=== PATIENT | female | born 2000 | race Caucasian/White ===

== ENCOUNTER 2020-03-07 13:30 | Observation (INO) ==
[2020-03-07] MEDS ORDERED: PANTOPRAZOLE BOLUS/DRIP 1 EA IV STA (14:17)
[2020-03-07] MEDS ORDERED: ONDANSETRON INJ 2 MG/ML 2 ML VIAL IV STA (14:17)
[2020-03-07] MEDS ORDERED: ACETAMINOPHEN 1000 MG/100 ML IV IV STA (14:17)
[2020-03-07] MEDS ORDERED: PANTOprazole 80 MG in DEXTROSE 5% 100 ML IV ONE (14:17)
[2020-03-07] MEDS ORDERED: MoRPHine SULFATE 4 MG/ML 1 ML CARP\\VIAL IV PRN (14:17)
[2020-03-07] MEDS ORDERED: DiphenhydrAMINE HCL 50 MG/ML VIAL IV STA (14:17)
--- NOTE | 2020-03-07 14:26 | Emergency Department Note ---
Impression & Plan LUQ abdominal pain, Acute dehydration, Vomiting and diarrhea, Melena ED Provider Note NAME: ILDEFONSO MULLIGAN AGE: 19 SEX: F : 2000 ARRIVES VIA: Walk-In INFORMANT: [Patient] ED PROVIDER(S): [Charles Boswell MD] CHIEF COMPLAINT: Abdominal pain HISTORY OF PRESENT ILLNESS: The patient is a 19-year-old female who presents to the ED with about 4 days of abdominal pain. The patient states that in addition, she has had nausea, vomiting and diarrhea. The patient was seen in this ED 3 days ago, lab work was unremarkable. Abdominal and pelvis CT showed a normal appendix however, there was some slight thickening of the stomach of unknown etiology. The patient states that since being discharged, she has continued to have crampy abdominal pain in particular, in the right lower quadrant. The pain comes and goes and when present, is an 8 on a scale of 1-10. She has had some vomiting. She has no appetite. She is weak and exhausted. The patient states that her urine output has decreased although there has been no urinary burning. She had 1 bout of dark, black stool. The color of her stool concerned her and she presents to the ED. The patient states that she has in the past use omeprazole, she has not use this though lately. She does occasionally have reflux. Motrin, when she uses it, does cause her stomach cramping. REVIEW OF SYSTEMS: See HPI for pertinent positives and negatives. A total of ten systems were re viewed and were otherwise negative. PMHx/PSHx: See Below SOCIAL HISTORY: See Below. PHYSICAL EXAM: GENERAL: Patient is in no acute distress. HEENT: No acute trauma, normocephalic atraumatic, mucous membranes moist, no nasal congestion, no scleral icterus. NECK: No stridor, no adenopathy, no meningismus, trachea is midline. LUNGS: Clear to auscultation bilaterally, no wheeze, no rhonchi, breath sounds equal. HEART: Without murmurs gallops or rubs, regular rate and rhythm. ABDOMEN: Soft, mildly diffusely tender but fairly significant tender in the left upper quadrant, bowel sounds were not heard, no hernias, no peritonitis. EXTREMITIES: No cyanosis or edema, full range of motion of all the joints without pain or difficulty, no signs for acute trauma. NEUROLOGIC: Oriented x 3, no acute motor or sensory deficits, no focal weakness. SKIN: No rash, no jaundice, no diaphoresis. Rectal: Dark stool, heme positive. DIFFERENTIAL DIAGNOSIS: Appendicitis, ovarian cyst, ovarian torsion, ectopic , TOA, PID, infections, ulcers, gastritis, GI bleeding, diverticulitis, UTI, obstruction, mesenteric ischemia, aortic pathology, inflammatory bowel disease, renal colic, PUD, pancreatitis, biliary pathology, hernia, volvulus, constipation, as well as other pathologies. EMERGENCY DEPARTMENT COURSE/PROCEDURES: Continuous Cardiac Monitoring: An order was placed for continuous cardiac monitoring. The monitor shows a rate of 60 with normal sinus rhythm. MEDICAL DECISION MAKING: There is a moderate leukocytosis, this could be consistent with her pain and vomiting or possibly infection. She has a normal hemoglobin. There is a normal platelet count. No significant electrolyte abnormality or kidney failure. No concerning liver enzyme elevation. testing was negative. No evidence for pancreatitis by her testing. Urinalysis showed some contamination, no infection. Abdominal series does not show free air, pneumonia or bowel obstruction. On exam, the patient was tender in the left upper quadrant. Rectal exam revealed dark stool which was heme positive. Patient received IV saline for hydration. She was given a bolus of Protonix and placed on a Protonix drip. She received IV Zofran for nausea, IV morphine for pain, IV Benadryl for nausea. She received IV Tylenol for pain. The patient does seem more comfortable. She has findings consistent with GI bleeding and melena. I am concerned about ulcer and/or gastritis. She is not doing well at home. She is quite dehydrated and I do think requires a hospital stay. I did speak to the patient and to the pillowcase folder. I consulted GI, they felt a hospital stay was appropriate. The on-call hospitalist was consulted. Past Med/Surg History Medical History Anxiety Asthma IUD (intrauterine device) in place No pertinent past medical history Surgical History No pertinent past surgical history Social History Smoking Status: Never smoker Hx Alcohol Use: Yes Alcohol type: beer, wine and hard liquor Hx Substance Use: No Preferred Language: Wolof Communication Ability: Effective Donor Support Technician Required: No Beliefs That Will Affect Care: None Current Living Situation: Other Current Living Situation Comment: [employer] off campus housing with roommates Other Information That Helps Us Care for You: No Feels Safe at Home: Yes Safety Concerns: Feels Safe At This Time Allergies Allergies Allergy/AdvReac Type Severity Reaction Status Date / Time nut - unspecified Allergy Severe Anaphylaxis Verified 03/07/20 15:22 Home Meds Home Medications Medication Instructions Recorded Confirmed levonorgestrel [Mirena] 20 mcg INTRAUTERINE CONTINOUS 06/15/19 03/07/20 Claritin-D 24 Hour 1 tab PO DAILY 03/07/20 03/07/20 albuterol sulfate 2 inh INHALATION QID PRN 03/07/20 03/07/20 sertraline [Zoloft] 100 mg PO DAILY 03/07/20 03/07/20 Results & Data (ED) Vital Signs Vital Signs - 24 hr 03/07/20 13:39 03/07/20 14:00 03/07/20 14:03 Temperature 36.7 C Temperature Source Oral Pulse Rate 102 H 61 61 Pulse Rate from SpO2 Sensor 62 62 Pulse Rhythm Respiratory Rate 20 13 14 Blood Pressure 116/72 106/74 Blood Pressure Mean 86 82 Pulse Oximetry 98 96 96 Oxygen Delivery Method Room Air Sepsis Recent Fever Within 48 Hours No Sepsis New/Unexplained Change in Mental Status No Sepsis Action Taken by Nursing No Action Required 03/07/20 14:17 03/07/20 14:30 03/07/20 14:31 Temperature Temperature Source Pulse Rate 66 78 Pulse Rate from SpO2 Sensor 67 76 Pulse Rhythm Regular Respiratory Rate 15 19 Blood Pressure 108/70 Blood Pressure Mean 81 Pulse Oximetry 98 97 Oxygen Delivery Method Room Air Sepsis Recent Fever Within 48 Hours Sepsis New/Unexplained Change in Mental Status Sepsis Action Taken by Nursing 03/07/20 15:00 03/07/20 15:30 03/07/20 15:31 Temperature Temperature Source Pulse Rate 63 60 60 Pulse Rate from SpO2 Sensor 63 60 57 L Pulse Rhythm Respiratory Rate 14 15 14 Blood Pressure 102/70 Blood Pressure Mean 74 Pulse Oximetry 100 99 100 Oxygen Delivery Method Sepsis Recent Fever Within 48 Hours Sepsis New/Unexplained Change in Mental Status Sepsis Action Taken by Nursing 03/07/20 16:00 03/07/20 16:01 Temperature Temperature Source Pulse Rate 61 62 Pulse Rate from SpO2 Sensor 61 63 Pulse Rhythm Respiratory Rate 18 13 Blood Pressure 111/75 Blood Pressure Mean 81 Pulse Oximetry 100 99 Oxygen Delivery Method Sepsis Recent Fever Within 48 Hours Sepsis New/Unexplained Change in Mental Status Sepsis Action Taken by [facility] Medications Current Medication List: was personally reviewed by me Laboratory Data Attestation: I reviewed the patient's lab results. Result diagrams: 03/07/20 13:55 03/07/20 13:55 Lab Results 03/07/20 03/07/20 03/07/20 Range/Units 13:55 13:55 13:55 WBC 15.26 H (4.8-10.8) K/uL RBC 4.81 (4.2-5.4) M/uL Hgb 15.7 (12.0-16.0) g/dL Hct 44.9 (37-47) % MCV 93.3 (80-100) fL MCH 32.6 (25-34) pg MCHC 35.0 (32-36) g/dL RDW Std Deviation 41.6 (36.4-46.3) fL RDW Coeff of Olivier 12.5 (11.5-14.5) % Plt Count 326 (130-400) K/uL MPV 9.6 (7.4-10.4) fL Immature Gran % (Auto) 0.2 % Neut % (Auto) 82.2 % Lymph % (Auto) 10.9 % Falls % (Auto) 6.0 % Eos % (Auto) 0.6 % Baso % (Auto) 0.1 % Neut # (Auto) 12.55 H (1.4-6.5) K/uL Lymph # (Auto) 1.66 (1.2-3.4) K/uL Falls # (Auto) 0.92 H (0.11-0.59) K/uL Eos # (Auto) 0.09 (0-0.5) K/uL Baso # (Auto) 0.01 (0-0.2) K/uL Immature Gran # (Auto) 0.03 H (0.00-0.02) K/uL ESR (0-21) mm/hr Sodium 137 (136-145) mmol/L Potassium 3.5 (3.5-5.1) mmol/L Chloride 100 (98-107) mmol/L Carbon Dioxide 29 (21-32) mmol/L Anion Gap 8.0 (3-11) BUN 10 (7-18) mg/dl Creatinine 0.89 (0.6-1.2) mg/dl Est Cr Clr Drug Dosing 96.5 ml/min Est GFR ( Amer) 108.9 Est GFR (Non-Af Amer) 94.0 BUN/Creatinine Ratio 10.9 (10-20) Glucose 90 (70-99) mg/dl Calcium 9.7 (8.5-10.1) mg/dl Magnesium 2.2 (1.8-2.4) mg/dl Total Bilirubin 0.7 (0.2-1) mg/dl AST 20 (15-37) U/L ALT 17 (12-78) U/L Alkaline Phosphatase 84 (45-117) U/L C-Reactive Protein (0-0.29) mg/dl Total Protein 8.8 H (6.4-8.2) gm/dl Albumin 4.6 (3.4-5.0) gm/dl Globulin 4.2 H (2.5-4.0) gm/dl Albumin/Globulin Ratio 1.1 (0.9-2) Lipase 76 (73-393) U/L HCG, Qual Negative (Negative) Urine Color Urine Appearance (Clear) Urine pH (4.5-7.5) Ur Specific [place] (1.000-1.030) Urine Protein (Negative) Urine Glucose (UA) (Negative) Urine Ketones (Negative) Urine Blood (Negative) Urine Nitrite (Negative) Urine Bilirubin (Negative) Urine Urobilinogen (Negative) Ur Leukocyte Esterase (Negative) Urine WBC (Auto) (0-5) /hpf Urine RBC (Auto) (0-4) /hpf U Hyaline Cast (Auto) (0-5) /lpf U Epithel Cells (Auto) (0-5) /lpf Urine Bacteria (Auto) (Negative) Blood Type Antibody Screen 03/07/20 03/07/20 03/07/20 Range/Units 13:55 13:55 13:55 WBC (4.8-10.8) K/uL RBC (4.2-5.4) M/uL Hgb (12.0-16.0) g/dL Hct (37-47) % MCV (80-100) fL MCH (25-34) pg MCHC (32-36) g/dL RDW Std Deviation (36.4-46.3) fL RDW Coeff of Olivier (11.5-14.5) % Plt Count (130-400) K/uL MPV (7.4-10.4) fL Immature Gran % (Auto) % Neut % (Auto) % Lymph % (Auto) % Falls % (Auto) % Eos % (Auto) % Baso % (Auto) % Neut # (Auto) (1.4-6.5) K/uL Lymph # (Auto) (1.2-3.4) K/uL Falls # (Auto) (0.11-0.59) K/uL Eos # (Auto) (0-0.5) K/uL Baso # (Auto) (0-0.2) K/uL Immature Gran # (Auto) (0.00-0.02) K/uL ESR 6 (0-21) mm/hr Sodium (136-145) mmol/L Potassium (3.5-5.1) mmol/L Chloride (98-107) mmol/L Carbon Dioxide (21-32) mmol/L Anion Gap (3-11) BUN (7-18) mg/dl Creatinine (0.6-1.2) mg/dl Est Cr Clr Drug Dosing ml/min Est GFR ( Amer) Est GFR (Non-Af Amer) BUN/Creatinine Ratio (10-20) Glucose (70-99) mg/dl Calcium (8.5-10.1) mg/dl Magnesium (1.8-2.4) mg/dl Total Bilirubin (0.2-1) mg/dl AST (15-37) U/L ALT (12-78) U/L Alkaline Phosphatase (45-117) U/L C-Reactive Protein < 0.29 (0-0.29) mg/dl Total Protein (6.4-8.2) gm/dl Albumin (3.4-5.0) gm/dl Globulin (2.5-4.0) gm/dl Albumin/Globulin Ratio (0.9-2) Lipase (73-393) U/L HCG, Qual (Negative) Urine Color Yellow Urine Appearance Turbid A (Clear) Urine pH 7.0 (4.5-7.5) Ur Specific [place] 1.021 (1.000-1.030) Urine Protein Negative (Negative) Urine Glucose (UA) Negative (Negative) Urine Ketones 1+ H (Negative) Urine Blood Trace H (Negative) Urine Nitrite Negative (Negative) Urine Bilirubin Negative (Negative) Urine Urobilinogen Negative (Negative) Ur Leukocyte Esterase Negative (Negative) Urine WBC (Auto) 1-5 (0-5) /hpf Urine RBC (Auto) 0-4 (0-4) /hpf U Hyaline Cast (Auto) 1-5 (0-5) /lpf U Epithel Cells (Auto) >30 H (0-5) /lpf Urine Bacteria (Auto) Negative (Negative) Blood Type Antibody Screen 03/07/20 Range/Units 14:53 WBC (4.8-10.8) K/uL RBC (4.2-5.4) M/uL Hgb (12.0-16.0) g/dL Hct (37-47) % MCV (80-100) fL MCH (25-34) pg MCHC (32-36) g/dL RDW Std Deviation (36.4-46.3) fL RDW Coeff of Olivier (11.5-14.5) % Plt Count (130-400) K/uL MPV (7.4-10.4) fL Immature Gran % (Auto) % Neut % (Auto) % Lymph % (Auto) % Falls % (Auto) % Eos % (Auto) % Baso % (Auto) % Neut # (Auto) (1.4-6.5) K/uL Lymph # (Auto) (1.2-3.4) K/uL Falls # (Auto) (0.11-0.59) K/uL Eos # (Auto) (0-0.5) K/uL Baso # (Auto) (0-0.2) K/uL Immature Gran # (Auto) (0.00-0.02) K/uL ESR (0-21) mm/hr Sodium (136-145) mmol/L Potassium (3.5-5.1) mmol/L Chloride (98-107) mmol/L Carbon Dioxide (21-32) mmol/L Anion Gap (3-11) BUN (7-18) mg/dl Creatinine (0.6-1.2) mg/dl Est Cr Clr Drug Dosing ml/min Est GFR ( Amer) Est GFR (Non-Af Amer) BUN/Creatinine Ratio (10-20) Glucose (70-99) mg/dl Calcium (8.5-10.1) mg/dl Magnesium (1.8-2.4) mg/dl Total Bilirubin (0.2-1) mg/dl AST (15-37) U/L ALT (12-78) U/L Alkaline Phosphatase (45-117) U/L C-Reactive Protein (0-0.29) mg/dl Total Protein (6.4-8.2) gm/dl Albumin (3.4-5.0) gm/dl Globulin (2.5-4.0) gm/dl Albumin/Globulin Ratio (0.9-2) Lipase (73-393) U/L HCG, Qual (Negative) Urine Color Urine Appearance (Clear) Urine pH (4.5-7.5) Ur Specific [place] (1.000-1.030) Urine Protein (Negative) Urine Glucose (UA) (Negative) Urine Ketones (Negative) Urine Blood (Negative) Urine Nitrite (Negative) Urine Bilirubin (Negative) Urine Urobilinogen (Negative) Ur Leukocyte Esterase (Negative) Urine WBC (Auto) (0-5) /hpf Urine RBC (Auto) (0-4) /hpf U Hyaline Cast (Auto) (0-5) /lpf U Epithel Cells (Auto) (0-5) /lpf Urine Bacteria (Auto) (Negative) Blood Type O Positive Antibody Screen NEGATIVE Administered Medications Pantoprazole Sodium 40 mg/ (Syringe) 10 mls @ 5 mls/min IV BID BRITANY Stop: 04/06/20 20:59 Last Admin: 03/07/20 20:59 Dose: 5 mls/min Documented by: [id number] Sodium Chloride (Nss 1000ml) 1,000 mls @ 80 mls[facility]hr [id number] Stop: 04/06/20 19:44 Last Admin: 03/07/20 20:59 Dose: 80 mls/hr Documented by: [id number] Sucralfate (Sucralfate 1 Gm/10 Ml Udc) 1 gm PO QID BRITANY Stop: 04/06/20 20:59 Last Admin: 03/07/20 21:02 Dose: 1 gm Documented by: [id number] Discontinued Medications Acetaminophen (Acetaminophen 1000 Mg/100 Ml Iv) 1,000 mg IV NOW STA Stop: 03/07/20 14:18 Last Admin: 03/07/20 14:52 Dose: 1,000 mg Documented by: [id number] Diphenhydramine HCl (Diphenhydramine Hcl 50 Mg/Ml Vial) 12.5 mg IV NOW STA Stop: 03/07/20 14:18 Last Admin: 03/07/20 14:52 Dose: 12.5 mg Documented by: [id number] Sodium Chloride (Nss 1000ml) 1,000 mls @ 999 mls/hr IV .[id number] BRITANY Stop: 03/07/20 15:30 Last Infusion: 03/07/20 19:40 Dose: 0 mls/hr Documented by: [id number] Admin: 03/07/20 14:55 Dose: 999 mls/hr Documented by: [id number] Pantoprazole Sodium (Protonix Bolus/Drip) 0 mls @ 1 mls/hr IV ONE STA Stop: 03/07/20 14:18 Last Admin: 03/07/20 14:40 Dose: 1 mls/hr Documented by: [id number] Pantoprazole Sodium 40 mg/ (Dextrose) 100 mls @ 20 mls/hr IV Q5H BRITANY Stop: 04/06/20 14:33 Last Admin: 03/07/20 21:20 Dose: Not Given Documented by: [id number] Infusion: 03/07/20 20:00 Dose: 0 mg/hr, 0 mls/hr Documented by: [id number] Admin: 03/07/20 14:54 Dose: 8 mg/hr, 20 mls/hr Documented by: [id number] Pantoprazole Sodium 80 mg/ (Dextrose) 120 mls @ 400 mls/hr IV NOW ONE Stop: 03/07/20 14:34 Last Infusion: 03/07/20 19:40 Dose: 0 mls/hr Documented by: [id number] Admin: 03/07/20 14:53 Dose: 400 mls/hr Documented by: [id number] Morphine Sulfate (Morphine Sulfate 4 Mg/Ml 1 Ml Carp\Vial) 2 mg IV Q15M PRN PRN Reason: Pain Stop: 03/21/20 14:16 Last Admin: 03/07/20 14:55 Dose: 2 mg Documented by: [id number] Ondansetron HCl (Ondansetron Inj 2 Mg/Ml 2 Ml Vial) 4 mg IV NOW STA Stop: 03/07/20 14:18 Last Admin: 03/07/20 14:55 Dose: 4 mg Documented by: [id number] Imaging Data Radiologist's Impression: XR abdomen 2V w PA chest CLINICAL HISTORY: Nausea, vomiting, diarrhea COMPARISON STUDY: CT scan dated 03/05/2020 FINDINGS: The erect chest reveals no evidence of free air. There is no evidence of focal pulmonary consolidation.] Erect and supine views of the abdomen reveal no abnormally dilated loops of large or small bowel. There are no transition zone to indicate bowel obstruction. An IUD is visualized. IMPRESSION: No evidence of bowel obstruction. No evidence of free air. Blood Pressure Blood Pressure Findings: Normal blood pressure Discharge Plan Visit Data Chief Complaint: Abdominal Pain Stated Complaint: ABDOMINAL PAIN ED Provider: Charles Boswell Discharge Problem: LUQ abdominal pain, Acute dehydration, Vomiting and diarrhea, Melena Patient Disposition: Admitted As Inpatient Condition: Good Discharge Instructions Interventions: ED Discharge Assessment Last Done: 03/07/20 17:49
[2020-03-07] MEDS ORDERED: SODIUM CHLORIDE 0.9% 1000ML 1,000 ML IV SCH (14:30)
[2020-03-07 14:31] LABS: Basophils # (auto) 0.01 K/uL (0-0.2); Basophils % (auto) 0.1 %; Eosinophils # (auto) 0.09 K/uL (0-0.5); Eosinophils % (auto) 0.6 %; Hematocrit (blood only) 44.9 % (37-47); Hemoglobin 15.7 g/dL (12.0-16.0); Immature Granulocytes # (auto) 0.03 K/uL (0.00-0.02); Immature Granulocytes % (auto) 0.2 %; Lymphocytes # (auto) 1.66 K/uL (1.2-3.4); Lymphocytes % (auto) 10.9 %; Mean Corpuscular Hemoglobin 32.6 pg (25-34); Mean Corpuscular Volume 93.3 fL (80-100); Mean Platelet Volume 9.6 fL (7.4-10.4); Monocytes # (auto) 0.92 K/uL (0.11-0.59); Neutrophils # (auto) 12.55 K/uL (1.4-6.5); Neutrophils % (auto) 82.2 %; Platelet Count 326 K/uL (130-400); RDW Coefficient of Variation 12.5 % (11.5-14.5); RDW Standard Deviation 41.6 fL (36.4-46.3); Red Blood Count 4.81 M/uL (4.2-5.4); White Blood Count 15.26 K/uL (4.8-10.8)
[2020-03-07 14:35] LABS: Appearance Urine Turbid (Clear); Bacteria Urine Automated Negative (Negative); Bilirubin Urine Negative (Negative); Blood Urine Trace (Negative); Color Urine Yellow; Epithelial Cell Urine Auto >30 /lpf (0-5); Glucose Urine UA Negative (Negative); Ketones Urine 1+ (Negative); Leukocyte Esterase Urine Negative (Negative); Nitrite Urine Negative (Negative); Protein Urine Negative (Negative); Specific Gravity Urine 1.021 (1.000-1.030); Urobilinogen Urine Negative (Negative)
[2020-03-07 14:37] LABS: Pregnancy Test, Serum Negative (Negative)
[2020-03-07 14:39] LABS: Albumin Level 4.6 gm/dl (3.4-5.0); BUN Creatinine Ratio 10.9 (10-20); Calcium 9.7 mg/dl (8.5-10.1); Creatinine Clr Calc Pharmacy 96.5 ml/min; Est GFR (African American) 108.9; Magnesium 2.2 mg/dl (1.8-2.4); Potassium 3.5 mmol/L (3.5-5.1)
[2020-03-07 14:42] LABS: Albumin Globulin Ratio 1.1 (0.9-2); Bilirubin,Total 0.7 mg/dl (0.2-1); Globulin 4.2 gm/dl (2.5-4.0); Total Protein 8.8 gm/dl (6.4-8.2)
[2020-03-07 14:44] LABS: RBC Urine Automated 0-4 /hpf (0-4)
[2020-03-07] MEDS: PANTOprazole 40 MG in DEXTROSE 5% 100 ML IV SCH ×2 (14:54→21:20)
--- NOTE | 2020-03-07 15:40 | XRay Report ---
XR abdomen 2V w PA chest CLINICAL HISTORY: Nausea, vomiting, diarrhea COMPARISON STUDY: CT scan dated 03/05/2020 FINDINGS: The erect chest reveals no evidence of free air. There is no evidence of focal pulmonary co nsolidation.] Erect and supine views of the abdomen reveal no abnormally dilated loops of large or sm all bowel. There are no transition zone to indicate bowel obstruction. An IUD is visualized. IMPRESSION: No evidence of bowel obstruction. No evidence of free air. ACT 112: Negative or not required by law. Electronically signed by: Basil Arce M.D. 03/07/2020 3:39 PM
--- NOTE | 2020-03-07 16:36 | History & Physical Report ---
Date of Service March 07, 2020 Assessment & Plan (1) Abdominal pain: With n/v/d and one episode of melena Admit obs med surg CT 03/05 with gastric thickening favoring gastritis. Abd Xray 03/07 without free air or obstruction Leukocytosis, afebrile, hgb stable, lipase wnl Will order stool cultures, Cdiff NSS @ 80 mls/hr, antiemetics Pantoprazole IV push bid Consult GI for possible endoscopy (2) Asthma: Continue home albuterol (3) Anxiety: Continue sertraline - patient has not been able to take this since Sunday due to nausea (4) DVT prophylaxis: SCDs - low risk and possible melena History of Present Illness Ms. Schulte presented to the emergency department with 4 days of abdominal pain. She had been to the ED 3 days ago but had not improved. She has not eaten any food in a number of days and has been unable to drink. She has had nausea, vomiting and diarrhea and today had one bout of dark black stool which concerned her. Her CT upon her visit to the ED 3 days ago showed a focal segment of circumferential thickening in the mid body favoring gastritis vs mass. She has had no sick contacts, she lives with five roommates who have all been well. She had been drinking about 4 drinks a night for about four nights up until Sunday when she started to feel unwell. She reports she doesn't usually drink that much. She has never had anything like this before. She has no history of autoimmune disorders and none within her family history. She denies aches, chills fevers, chest pain, sob, cough, dysuria, or hesitancy. Pmhx: anxiety Social: lives with roommates, student at [employer], non smoker, drinks socially - as above Family: no significant family medical history Primary Care Provider: [facility] [place] Allergies Allergy/AdvReac Type Severity Reaction Status Date / Time nut - unspecified Allergy Severe Anaphylaxis Verified 03/07/20 15:22 Home Medications Home Medications Medication Instructions Recorded Confirmed Type levonorgestrel [Mirena] 20 mcg INTRAUTERINE CONTINOUS 06/15/19 03/07/20 History Claritin-D 24 Hour 1 tab PO DAILY 03/07/20 03/07/20 History albuterol sulfate 2 inh INHALATION QID PRN 03/07/20 03/07/20 History sertraline [Zoloft] 100 mg PO DAILY 03/07/20 03/07/20 History Past Med/Surg History Medical History Anxiety Asthma IUD (intrauterine device) in place No pertinent past medical history Surgical History No pertinent past surgical history Social History Smoking Status: Never smoker Hx Alcohol Use: Yes Alcohol type: beer, wine and hard liquor Hx Substance Use: No Preferred Language: Mongolian Communication Ability: Effective Medical Massage Therapist Required: No Beliefs That Will Affect Care: None Current Living Situation: Other Current Living Situation Comment: [employer] off campus housing with roommates Other Information That Helps Us Care for You: No Feels Safe at Home: Yes Safety Concerns: Feels Safe At This Time Review of Systems Review of Systems: All systems reviewed & are unremarkable except as noted in HPI & below Physical Exam Physical Exam: General: no distress Eyes: normal inspection, PERLL Respiratory: chest non tender, clear to auscultation, normal breath sounds, no respiratory distress, no accessory muscle use Cardiac: regular rate and rhythm, no rub or gallop, no murmur, no edema, no jvd GI/: active bowel sounds, mild diffuse abd pain, soft, non distended, no rebound tenderness Extremities: normal range of motion, normal strength, non tender Neuro/Psych: alert and oriented x 3, normal mood and affect Skin: normal color, dry Results & Data Results & Data ([facility]) Vital Signs (Past 12 Hours) Vital Signs Temp Pulse Resp BP Pulse Ox 03/07/20 16:01 62 13 99 03/07/20 16:00 61 18 111/75 100 03/07/20 15:31 60 14 100 03/07/20 15:30 60 15 102/70 99 03/07/20 15:00 63 14 100 03/07/20 14:31 78 19 97 03/07/20 14:30 66 15 108/70 98 03/07/20 14:03 61 14 96 03/07/20 14:00 61 13 106/74 96 03/07/20 13:39 36.7 C 102 H 20 116/72 98 Supervising Physician Co-Signing Physician Notes Attending Attestation & Admission Note: Pt seen/examined, chart reviewed, care plan d/w GREENSKEEPER SUPERVISOR Mandy Tom. I agree with the cobos components of her admission assessment. 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 Saught attention in our ER on that date; underwent CT abd/pelvis then showing an abnormality of the gastric wall, normal appendix, and trace free pelvic fluid. d/c with zofran and bentyl. Reports zofran has helped nausea, but abd pain continues. Much of the pain is in the RLQ and some in the high epigastric region. Pain is worst over RLQ. Bending, activity and eating make pain worse. She has had nocturnal abd pain over RLQ. Unable to eat anything since 03/04. In ER today her stool was gross melena and heme+. PMH, allergies, meds, sochx, famhx - reviewed VSS gen - nad, nontoxic mouth - MM dry heart - RRR, s1 s2, no murmur lungs - cta b/l abd - soft, ND, BS+, no HSM, no peritoneal signs; tenderness to deep palpation RLQ and epigastric region ext - no edema; pulses 2+ b/l chest/abd x-rays neg labs - leukocytosis, high total protein, HCG neg; lfts, lipase wnl previous CT abd/pelvis neg A/P: 1. nausea, vomiting 2. dehydration 3. abd pain - epigastric region, RLQ 4. melena with heme+ stool 5. leukocytosis Agree with Ms Santos to provide PPI IV bid, keep NPO, and provide IV Fluids. epigastric pain, abnormal CT showing thickened stomach lining, and heme + stool suggest possible mild UGI bleeding. RLQ abd pain is somewhat puzzling as it doesn't fit with her other upper abdominal symptoms. repeat CT to exclude developing appendicitis, ovarian pathology, etc? will check sed rate and crp. consider pelvic u/s to rule out ovarian pathology. GI consult am. serial CBC and other labs. Osvaldo Watkins MD PG Care Time/CCT Total # of Minutes Spent Total Time Spent with Patient: Total time spent is greater than 50% in coordination of care (as documented) at patient's floor/unit and/or counseling patient: Coding Level of Care Code 78558 OBS Care - Level 2 Diagnoses Abdominal pain R10.9 Asthma J45.909 Anxiety F41.9 DVT prophylaxis Z29.9
[2020-03-07] MEDS ORDERED: ALBUTEROL HFA 8 GM INHALER INH PRN (19:34)
[2020-03-07] MEDS: SODIUM CHLORIDE 0.9% 1000ML 1,000 ML IV SCH (20:59)
[2020-03-07] MEDS: PANTOprazole 40 MG in SYRINGE 0 ML IV SCH (20:59)
[2020-03-07] MEDS: SUCRALFATE 1 GM/10 ML UDC PO SCH (21:02)
[2020-03-07] MEDS ORDERED: ACETAMINOPHEN 325 MG TAB PO PRN (21:22)
[2020-03-07] MEDS ORDERED: OXYCODONE HCL IR 5 MG TAB (IMMEDIATE RELEASE) PO PRN (21:22)
[2020-03-07] MEDS: ONDANSETRON INJ 2 MG/ML 2 ML VIAL IV PRN (22:18)
[2020-03-08] MEDS: MoRPHine SULFATE 10 MG/ML CARP/VIAL IV PRN ×2 (01:40→08:09)
--- NOTE | 2020-03-08 07:00 | Ultrasound Report ---
PELVIC ULTRASOUND CLINICAL HISTORY: RLQ abd pain; eval right ovary for pathology COMPARISON STUDY: CT of the abdomen and pelvis March 05, 2020. TECHNIQUE: Transabdominal and transvaginal sonography of the pelvis was performed. FINDINGS: Uterus measures 6.5 x 2.7 x 4.6 cm. Intrauterine device is appropriately positioned. Endome trium measures 1 mm in thickness. There is no adnexal mass. Trace fluid within the pelvis is noted. T he right ovary measures 3.2 x 2.5 x 2.5 cm and the left ovary measures 2.7 x 1.9 x 2.6 cm. There is c olor flow within each ovary. Incidental note is made of debris within the bladder. IMPRESSION: 1. Unremarkable sonographic appearance of the uterus and ovaries. Appropriately positioned IUD. 2. Small amount of fluid within the pelvis. 3. Debris within the bladder which could be correlated with urinalysis. ACT 112: Negative or not required by law. Electronically signed by: Zhou Castro M.D. 03/08/2020 6:59 AM
[2020-03-08 07:36] LABS: Basophils # (auto) 0.01 K/uL (0-0.2); Basophils % (auto) 0.1 %; Eosinophils # (auto) 0.13 K/uL (0-0.5); Eosinophils % (auto) 1.5 %; Hematocrit (blood only) 37.7 % (37-47); Hemoglobin 12.4 g/dL (12.0-16.0); Immature Granulocytes # (auto) 0.01 K/uL (0.00-0.02); Immature Granulocytes % (auto) 0.1 %; Lymphocytes # (auto) 1.71 K/uL (1.2-3.4); Lymphocytes % (auto) 19.5 %; Mean Corpuscular Hemoglobin 31.4 pg (25-34); Mean Corpuscular Hgb Conc 32.9 g/dL (32-36); Mean Corpuscular Volume 95.4 fL (80-100); Mean Platelet Volume 9.4 fL (7.4-10.4); Monocytes # (auto) 0.55 K/uL (0.11-0.59); Monocytes % (auto) 6.3 %; Neutrophils # (auto) 6.34 K/uL (1.4-6.5); Neutrophils % (auto) 72.5 %; Platelet Count 232 K/uL (130-400); RDW Coefficient of Variation 12.8 % (11.5-14.5); RDW Standard Deviation 43.6 fL (36.4-46.3); Red Blood Count 3.95 M/uL (4.2-5.4); White Blood Count 8.75 K/uL (4.8-10.8)
[2020-03-08] MEDS: ONDANSETRON INJ 2 MG/ML 2 ML VIAL IV PRN (07:56)
[2020-03-08 08:06] LABS: BUN Creatinine Ratio 19.8 (10-20); Blood Urea Nitrogen 12 mg/dl (7-18); Calcium 8.6 mg/dl (8.5-10.1); Carbon Dioxide 23 mmol/L (21-32); Chloride 107 mmol/L (98-107); Creatinine Clr Calc Pharmacy 136.3 ml/min; Est GFR (African American) > 150.0; Glucose 63 mg/dl (70-99); Potassium 3.7 mmol/L (3.5-5.1); Sodium 139 mmol/L (136-145)
[2020-03-08] MEDS: SODIUM CHLORIDE 0.9% 1000ML 1,000 ML IV SCH ×2 (08:10→16:11)
--- NOTE | 2020-03-08 08:42 | Gastrointestinal Consultation ---
Date of Consultation March 08, 2020 Assessment & Plan (1) LUQ abdominal pain: Ms. Toledo' abdominal pain, nausea vomiting and black BM may be caused by gastritis (possibly ETOH gastritis), H Pylori, viral gastroenteritis. Gastric mass should be ruled out in light of abnormal CT scan. The black BM may be due to one dose of Pepto Bismol taken a few days ago vs. a slow/minimal gastric bleed. 1. EGD today. 2. Urine tox screen. 3. Agree with Pantoprazole drip for now, will re-evaluate after EGD. 4. Please keep NPO until EGD. 5. Further recommendations to follow EGD. Discussed with Dr. Maverick Rodriguez and the endoscopy banquet supervisor. EGD is arranged. Present on Admission?: Yes (2) Abnormal CT of the abdomen: Supervising Physician Co-Signing Physician Notes I saw and evaluated the patient. She presents with a history of abdominal pain nausea and vomiting. CT shows inflammatory changes within the mid portion of the gastric body. Physical examination Thin female, no obvious distress no scleral icterus Impression: With a history of nausea vomiting and abdominal discomfort with a CT showing a possible ulcer within the stomach. Given the imaging studies and s ymptoms it is probably prudent to proceed with upper endoscopy for further evaluation. Recommendations Upper endoscopy today Further recommendations depending on EGD results Consider screening for cannabis consumption with a tox screen History of Present Illness Reason for Consultation: Nausea, vomiting, abdominal pain Requesting Physician: Dr. Bingham Attending Physician: Tone Honeycutt, DO History of Present Illness Ms. Elan Schulte is a 19yr old female [employer] student with a hx of asthma and chronic constipation, who has experienced abdominal pain since 03/04. On that day, she had experienced a sudden onset of bifocal abdominal pain: LUQ and RLQ. With this, she began with nausea, vomiting about 2 times/day, typically in the evenings. She presented to the ED on 03/04. At that time, CT with question of gastric wall thickening vs. mass. She was discharged, but returned yesterday because she has continued with abdominal pain, nausea, vomiting and because she passed one loose black BM, small volume. She also reports that she has not been able to retain any fluids and has not been able to eat. She reports a 10 lbs wt loss since last (5 days). She denies hematemesis or coffee grounds emesis. She did not have a significant drop in Hb and denies lightheadedness, SOB or CP. She did have leukocytosis on arrival at 15 ->8 today. She denies any fevers. Social: She is a sophomore, lives in an apartment and has all on line classes at [employer] this year. She is working towards a degree in Business. She reports drinking about 5 drinks/day for about 5 days prior to the onset of symptoms. Allergies Allergy/AdvReac Type Severity Reaction Status Date / Time nut - unspecified Allergy Severe Anaphylaxis Verified 03/07/20 15:22 Home Medications Home Medications Medication Instructions Recorded Confirmed Type levonorgestrel [Mirena] 20 mcg INTRAUTERINE CONTINOUS 06/15/19 03/07/20 History Claritin-D 24 Hour 1 tab PO DAILY 03/07/20 03/07/20 History albuterol sulfate 2 inh INHALATION QID PRN 03/07/20 03/07/20 History sertraline [Zoloft] 100 mg PO DAILY 03/07/20 03/07/20 History Patient History Medical History Anxiety Asthma IUD (intrauterine device) in place No pertinent past medical history Surgical History No pertinent past surgical history Social History Smoking Status: Never smoker Hx Alcohol Use: Yes Alcohol type: beer, wine and hard liquor Hx Substance Use: No Preferred Language: Palauan Communication Ability: Effective Section Laborer Required: No Beliefs That Will Affect Care: None Current Living Situation: Other Current Living Situation Comment: [facility] off campus housing with roommates Other Information That Helps Us Care for You: No Feels Safe at Home: Yes Safety Concerns: Feels Safe At This Time Review of Systems Review of Systems: ROS: Gen: Denies weakness, fevers, weight loss Eyes: No eye redness, or pain, no recent vision changes Resp: No SOB, no cough Cardio: No palpitations/irregular beats, no chest pain GI: No abdominal pain, no nausea/vomiting : Denies pain on urination Skin: No jaundice, itching or new rashes M/S: No red, painful or swollen joints Physical Exam Constitutional: WD/WN, vitals as above Eyes: PERRL, conjunctivae normal, anicteric sclerae ENMT: external ear and nose normal, oropharynx normal Neck: trachea midline, no thyromegaly Respiratory: normal respiratory effort, lungs clear to auscultation Cardiovascular: RRR, no murmur, no edema Gastrointestinal (Abdomen): Inspection/Auscultation: abdomen normal to inspection and + hypoactive bowel sounds; abdomen not distended Percussion/Palpation: + abdomen tender (mild, diffuse) and abdomen soft Musculoskeletal: no cyanosis or clubbing, extremities motor strength 5/5 Skin: no rashes, warm and dry Neurologic: patellar DTR's 2+ bilat, sensation intact Psychiatric: A+Ox3, euthymic affect Lymphatic: no cervical or axillary lymphadenopathy Results & Data ([facility]) Vital Signs (Past 12 Hours) Vital Signs Temp Pulse Resp BP Pulse Ox 03/08/20 07:46 36.4 C L 69 14 86/51 L 98 03/07/20 22:56 36.8 C 63 14 104/66 98 Laboratory Results WBC 15->8, Hb 12, Hct 3.8, Platelets 232, Na 139, K 3.7, Cl 107, CO2 23, BUN 12, Cr0.6, Platelets 63. Diagnostic Findings CT abd/pelvis on 03/05/20 (prior ED visit): 1. A focal segment of circumferential thickening/edema within the mid body of the stomach as described above. This favors a gastritis. A gastric mass is considered less likely but not entirely excluded. Endoscopy recommended for further evaluation. 2. Questionable thickening of the transverse colon and descending colon is likely due to underdistention. 3. Normal appendix. 4. Mild periportal edema and trace pelvic free fluid. This may be due to overhydration. 5. The intrauterine device is in good position. Medications Administered Protonix drip
[2020-03-08] MEDS ORDERED: D5W AND NSS 1,000 ML IV SCH (08:45)
[2020-03-08] MEDS: SERTRALINE HCL 100 MG TABLET PO SCH (09:05)
[2020-03-08] MEDS: PANTOprazole 40 MG in SYRINGE 0 ML IV SCH (09:05)
[2020-03-08] MEDS: SUCRALFATE 1 GM/10 ML UDC PO SCH (09:11)
--- NOTE | 2020-03-08 10:45 | Anesthesiology Consultation ---
Date of Service March 08, 2020 Assessment & Plan (1) Encounter for pre-operative examination: Chart Review Chart Review: Acceptable Risk for Surgery and Patient NOT seen in Pre Admission Testing Consults Requested none History Surgery Operation Date: 03/08/20 17:00 Proposed Procedures p Esophagogastroduodenoscopy Dr Michael Rodriguez Height/Weight Height: 5 ft 8 in Weight: 60.1 kg Allergies Allergy/AdvReac Type Severity Reaction Status Date / Time nut - unspecified Allergy Severe Anaphylaxis Verified 03/08/20 10:32 Medications Home Medications Medication Instructions Recorded Confirmed Last Taken levonorgestrel [Mirena] 20 mcg INTRAUTERINE CONTINOUS 06/15/19 03/07/20 Unknown Claritin-D 24 Hour 1 tab PO DAILY 03/07/20 03/07/20 Unknown albuterol sulfate 2 inh INHALATION QID PRN 03/07/20 03/07/20 Unknown sertraline [Zoloft] 100 mg PO DAILY 03/07/20 03/07/20 03/03/20 Active Medications Generic Name Dose Route Start Last Admin Trade Name Freq PRN Reason Stop Dose Admin Acetaminophen 650 mg 03/07/20 21:22 03/07/20 22:16 Acetaminophen 325 Mg Tab PO 04/06/20 21:21 650 mg Q6H PRN Administration MILD Pain (Scale 1,2,3) Pantoprazole Sodium 40 mg/ 10 mls @ 5 mls/min 03/07/20 21:00 03/08/20 09:05 Syringe IV 04/06/20 20:59 5 mls/min BID BRITANY Administration Dextrose/Sodium Chloride 1,000 mls @ 80 mls/hr 03/08/20 08:45 03/08/20 10:19 D5w And Nss IV 04/07/20 08:44 0 mls/hr .[id number] BRITANY Infusion Morphine Sulfate 2 mg 03/07/20 21:22 03/08/20 08:09 Morphine Sulfate 10 Mg/Ml Carp/Vial IV 03/21/20 21:21 2 mg Q4H PRN Administration SEVERE Pain (Scale 7,8,9,10) Ondansetron HCl 4 mg 03/07/20 19:34 03/08/20 07:56 Ondansetron Inj 2 Mg/Ml 2 Ml Vial IV 04/06/20 19:33 4 mg Q4H PRN Administration Nausea Sertraline HCl 100 mg 03/08/20 09:00 03/08/20 09:05 Sertraline Hcl 100 Mg Tablet PO 04/07/20 08:59 100 mg DAILY BRITANY Administration Sucralfate 1 gm 03/07/20 21:00 03/08/20 09:11 Sucralfate 1 Gm/10 Ml Udc PO 04/06/20 20:59 Not Given QID BRITANY NPO Date Last Intake of Fluids: 03/08/20 Time Last Intake of Fluids: 09:05 Last Intake of Fluids Comment: sip with med Date Last Intake of Solids: 03/06/20 Time Last Intake of Solids: 18:00 Last Intake of Solids Comment: 2 saltines Past Medical History Medical History Anxiety Asthma IUD (intrauterine device) in place No pertinent past medical history Exercise / Class Metabolic Activity II 4-5 Yardwork/Stairs/Walk up hill Past Surgical History Surgical History No pertinent past surgical history Past Anesthesia History No Hx of Anesthesia Complications and No Family Hx of Anesthesia Complications History of PONV No Hx of PONV and No Hx of Motion Sickness Social History Smoking Status: Never smoker Do You Dip or Chew Tobacco: No Hx Alcohol Use: Yes Alcohol type: beer, wine and hard liquor alcohol intake frequency: a few times a month Hx Substance Use: No substance use type: does not use Physical Exam Vital Signs Last Vital Signs Temp 36.4 C L 03/08/20 10:35 Pulse 58 L 03/08/20 10:35 Resp 12 03/08/20 10:35 BP 116/61 03/08/20 10:35 Pulse Ox 100 03/08/20 10:35 Testing Laboratory Results 03/08/20 07:22 03/08/20 07:22 Urine Color Yellow 03/07/20 13:55 Urine Appearance Turbid (Clear) A 03/07/20 13:55 Urine pH 7.0 (4.5-7.5) 03/07/20 13:55 Ur Specific [place] 1.021 (1.000-1.030) 03/07/20 13:55 Urine Protein Negative (Negative) 03/07/20 13:55 Urine Glucose (UA) Negative (Negative) 03/07/20 13:55 Urine Ketones 1+ (Negative) H 03/07/20 13:55 Urine Nitrite Negative (Negative) 03/07/20 13:55 Ur Leukocyte Esterase Negative (Negative) 03/07/20 13:55 Urine WBC (Auto) 1-5 /hpf (0-5) 03/07/20 13:55 Urine RBC (Auto) 0-4 /hpf (0-4) 03/07/20 13:55 U Hyaline Cast (Auto) 1-5 /lpf (0-5) 03/07/20 13:55 U Epithel Cells (Auto) >30 /lpf (0-5) H 03/07/20 13:55 Urine Bacteria (Auto) Negative (Negative) 03/07/20 13:55 Blood Type O Positive 03/07/20 14:53 Antibody Screen NEGATIVE 03/07/20 14:53
[2020-03-08 11:06] LABS: Amphetamines+Metham, Urine Neg (Neg); Barbiturates, Urine Neg (Neg); Benzodiazepine, Urine Neg (Neg); Cocaine, Urine Neg (Neg); MDMA (Ecstacy), Urine Neg (Neg); Methadone, Urine Neg (Neg); Opiate, Urine Pos (Neg); Phencyclidine, Urine Neg (Neg)
[2020-03-08] MEDS ORDERED: PROPOFOL IV EMULSION 10 MG/ML 20 ML VIAL IV ONE (11:11)
[2020-03-08] MEDS ORDERED: DEXAMETHASONE SOD INJ 4 MG/ML VIAL ONE (11:11)
[2020-03-08] MEDS ORDERED: LIDOCAINE HCL 2% 2 ML VIAL/AMP(20MG/ML) INFIL ONE (11:11)
[2020-03-08] MEDS ORDERED: ONDANSETRON INJ 2 MG/ML 2 ML VIAL ONE ×2 (11:11→11:29)
--- NOTE | 2020-03-08 11:14 | Communication Note ---
Date of Service: March 08, 2020 The patient underwent upper endoscopy this morning. Findings were notable for a very large ulcer of the gastric antrum with a visible vessel and adherent clot. This was treated with epinephrine injection and thermal therapy. Recommendations Clear liquids today Continue Protonix drip for a total of 72 hours Carafate 1 g 4 times daily for 2 weeks Upon transition to oral PPI would recommend Protonix 40 mg twice daily for 4 weeks then 1 time daily thereafter Repeat upper endoscopy to be scheduled in 3 months Stool study to screen for H. pylori
--- NOTE | 2020-03-08 11:21 | GI REPORT ---
Patient Name: Elan Schulte Procedure Date: 03/08/2020 10:33 AM Date of : 2000 Admit Type: Inpatient Age: 19 Gender: Female Attending MD: Maverick Rodriguez DO Procedure: Upper GI endoscopy Providers: Maverick Rodriguez DO Referring MD: Tone Honeycutt Indications: Epigastric abdominal pain, Melena Medicines: Monitored Anesthesia Care Complications: No immediate complications. Estimated blood loss: Minimal. Estimated Blood Loss: Estimated blood loss was minimal. Procedure: Pre-Anesthesia Assessment: - Prior to the procedure, a History and Physical was performed, and patient medications, allergies and sensitivities were reviewed. The patient's tolerance of previous anesthesia was reviewed. - The risks and benefits of the procedure and the sedation options and risks were discussed with the patient. All questions were answered and informed consent was obtained. - Patient identification and proposed procedure were verified prior to the procedure by the physician, the nurse and the director instrumentation. The procedure was verified in the procedure room. - Pre-procedure physical examination revealed no contraindications to sedation. - ASA Grade Assessment: II - A patient with mild systemic disease. - After reviewing the risks and benefits, the patient was deemed in satisfactory condition to undergo the procedure. - The anesthesia plan was to use monitored anesthesia care (MAC). - Immediately prior to administration of medications, the patient was re-assessed for adequacy to receive sedatives. - The heart rate, respiratory rate, oxygen saturations, blood pressure, adequacy of pulmonary ventilation, and response to care were monitored throughout the procedure. - The physical status of the patient was re-assessed after the procedure. After obtaining informed consent, the endoscope was passed under direct vision. Throughout the procedure, the patient's blood pressure, pulse, and oxygen saturations were monitored continuously. The Endoscope was introduced through the mouth, and advanced to the third part of duodenum. The upper GI endoscopy was accomplished without difficulty. The patient tolerated the procedure well. Findings: The examined esophagus was normal. The Z-line was regular and was found 38 cm from the incisors. One non-obstructing non-bleeding cratered gastric ulcer with a visible vessel and adherant clot was found on the anterior wall of the gastric antrum. The lesion was at least 30 mm in largest dimension. The area was successfully injected with 8 mL of a 1:10,000 solution of epinephrine for drug delivery. Coagulation for hemostasis using 7 Fr multipolar probe was successful. Estimated blood loss was minimal. The duodenal bulb, second portion of the duodenum and third portion of the duodenum were normal. The cardia, gastric fundus and gastric body were normal. Impression: - Normal esophagus. - Z-line regular, 38 cm from the incisors. - Non-obstructing non-bleeding gastric ulcer with a visible vessel. Injected. Treated with bipolar cautery. - Normal duodenal bulb, second portion of the duodenum and third portion of the duodenum. - Normal cardia, gastric fundus and gastric body. - No specimens collected. Recommendation: - Return patient to [facility] for ongoing care. - Give Protonix (pantoprazole): 8 mg/hr IV by continuous infusion for 3 days. Then transition to Protonix 40 mg twice daily for 4 weeks, then 1 time daily for a total of 12 weeks - Clear liquid diet today. - Use sucralfate tablets 1 gram PO QID for 2 weeks. - Perform an H. pylori stool antigen (HpSA) test. - Avoid use of NSAIDS - Repeat upper endoscopy in 3 months for surveillance. Maverick Rodriguez D.O. Maverick Rodriguez, 03/08/2020 11:20:19 AM This report has been signed electronically. Note Initiated On: 03/08/2020 10:33 AM Number of Addenda: 0 I attest to the content of the Intraoperative Record and orders documented therein, exceptions below {[id number]}
[2020-03-08] MEDS ORDERED: ONDANSETRON INJ 2 MG/ML 2 ML VIAL IV ONE (11:27)
--- NOTE | 2020-03-08 12:06 | Anesthesiology Progress Note ---
Date of Service March 08, 2020 Anesthesia Post Procedure Vital Signs Vital Signs: Temp Pulse Pulse Pulse Resp BP BP 03/08/20 11:48 75 18 112/71 03/08/20 11:32 75 18 120/70 03/08/20 11:17 106 H 16 94/49 L 03/08/20 10:35 36.4 C L 58 L 12 116/61 03/08/20 09:19 102/60 03/08/20 07:46 36.4 C L 69 14 86/51 L 03/07/20 22:56 36.8 C 63 14 104/66 03/07/20 20:18 36.7 C 60 16 108/66 03/07/20 19:34 36.7 C 60 16 108/66 03/07/20 17:49 58 L 15 108/64 03/07/20 16:01 62 13 03/07/20 16:00 61 18 111/75 03/07/20 15:31 60 14 03/07/20 15:30 60 15 102/70 03/07/20 15:00 63 14 03/07/20 14:31 78 19 03/07/20 14:30 66 15 108/70 03/07/20 14:03 61 14 03/07/20 14:00 61 13 106/74 03/07/20 13:39 36.7 C 102 H 20 116/72 Pulse Ox 03/08/20 11:48 100 03/08/20 11:32 100 03/08/20 11:17 100 03/08/20 10:35 100 03/08/20 09:19 03/08/20 07:46 98 03/07/20 22:56 98 03/07/20 20:18 97 03/07/20 19:34 97 03/07/20 17:49 99 03/07/20 16:01 99 03/07/20 16:00 100 03/07/20 15:31 100 03/07/20 15:30 99 03/07/20 15:00 100 03/07/20 14:31 97 03/07/20 14:30 98 03/07/20 14:03 96 03/07/20 14:00 96 03/07/20 13:39 98 Pain Intensity Abdomen: Pain Intensity: 8 Transfer of Care Handoff Completed per policy Notes Mental Status: alert / awake / arousable and participated in evaluation Patient Amnestic to Procedure: Yes Nausea / Vomiting: adequately controlled Pain: adequately controlled Airway Patency, RR, SpO2: stable & adequate BP & HR: stable & adequate Hydration State: stable & adequate Anesthetic Complications: no major complications apparent and Pt Satisfied with anesthetic care
[2020-03-08] MEDS: PANTOprazole 40 MG in DEXTROSE 5% 100 ML IV SCH ×3 (13:05→22:19)
[2020-03-08] MEDS: SUCRALFATE 1 GM TAB PO SCH ×3 (13:13→21:24)
--- NOTE | 2020-03-08 14:29 | Hospitalist Progress Note ---
Date of Service March 08, 2020 Assessment & Plan (1) Abdominal pain: With n/v/d and one episode of melena prior to admission CT 03/05 with gastric thickening favoring gastritis. Abd Xray 03/07 without free air or obstruction s/p EGD 03/08 showing large ulcer of the gastric antrum with a visible vessel and adherent clot. Stool cultures, Cdiff, H. Pylori NSS @ 80 mls/hr, antiemetics Pantoprazole gtt for 72 hours, carafate 1g 4 times daily for 2 weeks, transition to pantoprazole 40 mg bid for 4 weeks and then daily after that Clear liquids today and then slowly advance Trend hgb, decreased by 3g from admission but this is at least partially due to dilution as patient was dehydrated on admission Will need lifestyle counseling as patient admits to heavy drinking for five days leading up to abdominal symptoms. (2) Asthma: Continue home albuterol (3) Anxiety: Continue sertraline (4) DVT prophylaxis: SCDs - low risk and bleeding ulcer so no chemoproph Admission and Anticipated Discharge Date Admission Date: March 07, 2020 Subjective Ms. Schulte continued to have some nausea this morning. No bm since admission. No other complaints. Mother is at bedside. ROS Constitutional: no chills, aches, sweats or fever Respiratory: no sob,cough, sputum, or wheezing Cardiac: no chest pain, palpitations, edema, orthopnea or lightheadedness GI: no abdominal pain, nausea, vomiting, diarrhea or constipation : no dysuria or hesitancy Extremities: no joint pain or weakness Skin: no rash All other systems reviewed and negative Physical Exam Physical Exam: General: no distress Eyes: normal inspection, PERLL Respiratory: chest non tender, clear to auscultation, normal breath sounds, no respiratory distress, no accessory muscle use Cardiac: regular rate and rhythm, no rub or gallop, no murmur, no edema, no jvd GI/: active bowel sounds, mild tenderness epigastrum, soft, non distended Extremities: normal range of motion, normal strength, non tender Neuro/Psych: alert and oriented x 3, normal mood and affect Skin: normal color, dry Results & Data Results & Data ([facility]) Vital Signs (Past 12 Hours) Vital Signs Temp Pulse Pulse Resp BP BP Pulse Ox 03/08/20 12:15 36.6 C 69 14 123/72 98 03/08/20 12:06 36.8 C 70 16 120/73 100 03/08/20 11:48 75 18 112/71 100 03/08/20 11:32 75 18 120/70 100 03/08/20 11:17 106 H 16 94/49 L 100 03/08/20 10:35 36.4 C L 58 L 12 116/61 100 03/08/20 09:19 102/60 03/08/20 07:46 36.4 C L 69 14 86/51 L 98 PG Care Time/CCT Total # of Minutes Spent Total Time Spent with Patient: Total time spent is greater than 50% in coordination of care (as documented) at patient's floor/unit and/or counseling patient: Coding Level of Care Code 57934 Subseq Hosp Care Lvl 2 Diagnoses Abdominal pain R10.9 Asthma J45.909 Anxiety F41.9 DVT prophylaxis Z29.9
[2020-03-09] MEDS ORDERED: TRAZODONE HCL 50 MG TAB PO ONE (03:36)
[2020-03-09] MEDS: SODIUM CHLORIDE 0.9% 1000ML 1,000 ML IV SCH (04:17)
[2020-03-09] MEDS: PANTOprazole 40 MG in DEXTROSE 5% 100 ML IV SCH ×4 (07:09→22:15)
[2020-03-09 07:14] LABS: Basophils # (auto) 0.01 K/uL (0-0.2); Basophils % (auto) 0.1 %; Eosinophils # (auto) 0.04 K/uL (0-0.5); Eosinophils % (auto) 0.5 %; Hematocrit (blood only) 31.8 % (37-47); Immature Granulocytes # (auto) 0.01 K/uL (0.00-0.02); Immature Granulocytes % (auto) 0.1 %; Lymphocytes # (auto) 1.63 K/uL (1.2-3.4); Lymphocytes % (auto) 19.2 %; Mean Corpuscular Hemoglobin 31.6 pg (25-34); Mean Corpuscular Hgb Conc 34.6 g/dL (32-36); Mean Corpuscular Volume 91.4 fL (80-100); Mean Platelet Volume 9.5 fL (7.4-10.4); Monocytes # (auto) 0.63 K/uL (0.11-0.59); Monocytes % (auto) 7.4 %; Neutrophils # (auto) 6.17 K/uL (1.4-6.5); Neutrophils % (auto) 72.7 %; Platelet Count 239 K/uL (130-400); RDW Coefficient of Variation 12.5 % (11.5-14.5); RDW Standard Deviation 40.6 fL (36.4-46.3); Red Blood Count 3.48 M/uL (4.2-5.4); White Blood Count 8.49 K/uL (4.8-10.8)
[2020-03-09 07:49] LABS: Alanine Aminotransferase 13 U/L (12-78); Albumin Level 3.1 gm/dl (3.4-5.0); Aspartate Aminotransferase 12 U/L (15-37); BUN Creatinine Ratio 9.8 (10-20); Blood Urea Nitrogen 6 mg/dl (7-18); Calcium 8.4 mg/dl (8.5-10.1); Carbon Dioxide 24 mmol/L (21-32); Chloride 109 mmol/L (98-107); Creatinine Clr Calc Pharmacy 145.5 ml/min; Est GFR (African American) > 150.0; Est GFR (Non-African American) 132.9; Glucose 82 mg/dl (70-99); Potassium 3.4 mmol/L (3.5-5.1); Sodium 141 mmol/L (136-145)
[2020-03-09 07:56] LABS: Alkaline Phosphatase 57 U/L (45-117); Bilirubin,Total 0.5 mg/dl (0.2-1); Total Protein 6.1 gm/dl (6.4-8.2)
[2020-03-09] MEDS: SUCRALFATE 1 GM TAB PO SCH ×4 (08:41→20:42)
[2020-03-09] MEDS: SERTRALINE HCL 100 MG TABLET PO SCH (08:42)
--- NOTE | 2020-03-09 10:13 | Gastroenterology Progress Note ---
Date of Service March 09, 2020 Assessment & Plan (1) Gastric ulcer: 1. Ppi drip through tomorrow afternoon/evening. Then 40mg po BID x 1 month then daily x 1 months. 2. Check CBC with BUN/Cr tomorrow. 3. Monitor stool outputs. 4. Advance to full liquids po this afternoon. 5. EGD in 3m. Our office will call to arrange. Present on Admission?: Yes Admission and Anticipated Discharge Date Admission Date: March 08, 2020 Supervising Physician Co-Signing Physician Notes I saw and evaluated the patient. She does appear improved this morning. Recommendations Advance to full liquid diet for lunch then as tolerated thereafter Protonix IV drip for another 24 hours, upon discharge patient should be on Protonix 40 mg twice daily for 4 weeks then 1 time daily Carafate 4 times daily for 2 weeks Avoid use of nonsteroidals Await H pylori stool antigen study Repeat upper endoscopy in 3 months Subjective Ms. Schulte is a 19 yr old femlae admitted on 03/07 for abd pain, nauea, vomiting, melena. EGD yesterday with large gastric antrum ulcer, visible vessel, non bleeding. Hb 13->12.4 yesterday to 11.0 today. BUN 6. Today pt with less epigastric pain. Tolerating a clear liquid diet well. No further N/V or melena since arrival. Hemodynamically stable. Review of Systems Review of Systems: ROS: Gen: Denies weakness, fevers, weight loss Eyes: No eye redness, or pain, no recent vision changes Resp: No SOB, no cough Cardio: No palpitations/irregular beats, no chest pain GI: See HPI : Denies pain on urination Skin: No jaundice, itching or new rashes Physical Exam Constitutional: WD/WN, vitals as above Eyes: PERRL, conjunctivae normal, anicteric sclerae ENMT: external ear and nose normal, oropharynx normal Neck: trachea midline, no thyromegaly Respiratory: normal respiratory effort, lungs clear to auscultation Cardiovascular: RRR, no murmur, no edema Gastrointestinal (Abdomen): Inspection/Auscultation: abdomen normal to inspection and + hypoactive bowel sounds; abdomen not distended Percussion/Palpation: + abdomen tender (mild, diffuse) and abdomen soft Musculoskeletal: no cyanosis or clubbing, extremities motor strength 5/5 Skin: no rashes, warm and dry Neurologic: patellar DTR's 2+ bilat, sensation intact Psychiatric: A+Ox3, euthymic affect Lymphatic: no cervical or axillary lymphadenopathy Results & Data ([facility]) Vital Signs (Past 12 Hours) Vital Signs Temp Pulse Resp BP Pulse Ox 03/09/20 07:06 36.6 C 51 L 14 99/56 L 97 03/09/20 03:10 36.5 C 53 L 14 105/65 97 03/08/20 23:07 36.5 C 72 14 119/71 97 Laboratory Results WBC 8, Hb 11, Hct 31, Plt 239, K 3.4, BUN 6, Cr 0.34. Diagnostic Findings EGD 03/08: - Normal esophagus. - Z-line regular, 38 cm from the incisors. - Non-obstructing non-bleeding gastric ulcer with a visible vessel. Injected. Treated with bipolar cautery. - Normal duodenal bulb, second portion of the duodenum and third portion of the duodenum. - Normal cardia, gastric fundus and gastric body. - No specimens collected. Medications Administered PPI drip
[2020-03-09] MEDS ORDERED: POTASSIUM CHLORIDE 20 MEQ TABCR PO STA (12:20)
--- NOTE | 2020-03-09 14:46 | Hospitalist Progress Note ---
Date of Service March 09, 2020 Assessment & Plan (1) Abdominal pain: With n/v/d and one episode of melena prior to admission s/p EGD 03/08 showing large ulcer of the gastric antrum with a visible vessel and adherent clot. Stool cultures, Cdiff, H. Pylori DC IVF Pantoprazole gtt for another 24 hours, carafate 1g 4 times daily for 2 weeks, transition to pantoprazole 40 mg bid for 4 weeks and then daily after that. Follow up EGD in 3 months Avoid NSAIDs Advanced diet to full liquids Discussed alcohol use - advised to abstain until cleared by GI in follow up. Patient does not feel she is alcohol dependent, she reports that she normally drinks a lot in the first week of the semester but thereafter does not drink as often. I did certified drug counselor her that if she feels she has a problem with alcohol she should reach out to her doctor for resources on alcohol cessation. (2) Asthma: Continue home albuterol (3) Anxiety: Continue sertraline (4) DVT prophylaxis: SCDs - low risk and bleeding ulcer so no chemoproph Dispo: Can likely discharge tomorrow afternoon after completing 24 more hours of protonix gtt Admission and Anticipated Discharge Date Admission Date: March 08, 2020 Subjective Ms. Schulte is much improved from yesterday, abdominal pain is better. Tolerating diet. ROS Constitutional: no chills, aches, sweats or fever Respiratory: no sob,cough, sputum, or wheezing Cardiac: no chest pain, palpitations, edema, orthopnea or lightheadedness GI: no abdominal pain, nausea, vomiting, diarrhea or constipation : no dysuria or hesitancy Extremities: no joint pain or weakness Skin: no rash All other systems reviewed and negative Physical Exam Physical Exam: General: no distress Eyes: normal inspection, PERLL Respiratory: chest non tender, clear to auscultation, normal breath sounds, no respiratory distress, no accessory muscle use Cardiac: regular rate and rhythm, no rub or gallop, no murmur, no edema, no jvd GI/: active bowel sounds, no abd pain or tenderness, soft, non distended Extremities: normal range of motion, normal strength, non tender Neuro/Psych: alert and oriented x 3, normal mood and affect Skin: normal color, dry Results & Data Results & Data ([facility]) Vital Signs (Past 12 Hours) Vital Signs Temp Pulse Resp BP Pulse Ox 03/09/20 07:06 36.6 C 51 L 14 99/56 L 97 03/09/20 03:10 36.5 C 53 L 14 105/65 97 PG Care Time/CCT Total # of Minutes Spent Total Time Spent with Patient: Total time spent is greater than 50% in coordination of care (as documented) at patient's floor/unit and/or counseling patient: Coding Level of Care Code 81481 Subseq Hosp Care Lvl 2 Diagnoses Abdominal pain R10.9 Asthma J45.909 Anxiety F41.9 DVT prophylaxis Z29.9
[2020-03-09] MEDS ORDERED: TRAZODONE HCL 50 MG TAB PO PRN (23:14)
[2020-03-10] MEDS: PANTOprazole 40 MG in DEXTROSE 5% 100 ML IV SCH ×2 (03:02→07:30)
[2020-03-10 05:49] LABS: Hematocrit (blood only) 35.1 % (37-47); Hemoglobin 11.8 g/dL (12.0-16.0); Mean Corpuscular Hemoglobin 31.9 pg (25-34); Mean Corpuscular Hgb Conc 33.6 g/dL (32-36); Mean Corpuscular Volume 94.9 fL (80-100); Mean Platelet Volume 9.6 fL (7.4-10.4); Platelet Count 243 K/uL (130-400); RDW Standard Deviation 44.1 fL (36.4-46.3)
[2020-03-10 06:20] LABS: Albumin Level 3.5 gm/dl (3.4-5.0); BUN Creatinine Ratio 4.6 (10-20); Calcium 8.8 mg/dl (8.5-10.1); Creatinine Clr Calc Pharmacy 124.4 ml/min; Est GFR (African American) 146.3; Est GFR (Non-African American) 126.2; Potassium 3.6 mmol/L (3.5-5.1)
[2020-03-10 06:23] LABS: Albumin Globulin Ratio 1.2 (0.9-2); Bilirubin,Total 0.5 mg/dl (0.2-1); Total Protein 6.5 gm/dl (6.4-8.2)
[2020-03-10] MEDS: SERTRALINE HCL 100 MG TABLET PO SCH (08:50)
[2020-03-10] MEDS: SUCRALFATE 1 GM TAB PO SCH ×2 (08:50→13:00)
[2020-03-10] MEDS ORDERED: SODIUM CHLORIDE 0.9% 1000ML 1,000 ML IV SCH (09:30)
[2020-03-10 10:46] LABS: Codeine Urine NEGATIVE ng/mL (<50); Hydrocodone Urine NEGATIVE ng/mL (<50); Hydromor Urine NEGATIVE ng/mL (<50); Morphine Urine 4680 ng/mL (<50); Norhydrocodone Conf Ur NEGATIVE ng/mL (<50); Noroxycodone Urine NEGATIVE ng/mL (<50); Oxycodone Urine NEGATIVE ng/mL (<50); Oxymorph Urine NEGATIVE ng/mL (<50)
--- NOTE | 2020-03-10 11:22 | Hospitalist Progress Note ---
Date of Service March 10, 2020 Assessment & Plan Admission and Anticipated Discharge Date Admission Date: March 08, 2020 Results & Data Results & Data ([facility]) Vital Signs (Past 12 Hours) Vital Signs Temp Pulse Pulse Resp BP Pulse Ox 03/10/20 09:36 67 98/60 L 99 03/10/20 07:25 36.7 C 55 L 14 78/49 L 97 PG Care Time/CCT Total # of Minutes Spent Total Time Spent with Patient: Total time spent is greater than 50% in coor dination of care (as documented) at patient's floor/unit and/or counseling patient: Coding
--- NOTE | 2020-03-10 12:35 | Hospitalist Progress Note ---
Date of Service March 10, 2020 Assessment & Plan (1) Abdominal pain: With n/v/d and one episode of melena prior to admission s/p EGD 03/08 showing large ulcer of the gastric antrum with a visible vessel and adherent clot. Stool cultures, Cdiff, H. Pylori DC IVF Pantoprazole gtt for another 24 hours, carafate 1g 4 times daily for 2 weeks, transition to pantoprazole 40 mg bid for 4 weeks and then daily after that. Follow up EGD in 3 months Avoid NSAIDs Advanced diet to full liquids Discussed alcohol use - advised to abstain until cleared by GI in follow up. Patient does not feel she is alcohol dependent, she reports that she normally drinks a lot in the first week of the semester but thereafter does not drink as often. I did litigation counsel her that if she feels she has a problem with alcohol she should reach out to her doctor for resources on alcohol cessation. (2) Asthma: Continue home albuterol (3) Anxiety: Continue sertraline (4) DVT prophylaxis: SCDs - low risk and bleeding ulcer so no chemoproph Dispo: Can likely discharge tomorrow afternoon after completing 24 more hours of protonix gtt Admission and Anticipated Discharge Date Admission Date: March 08, 2020 Results & Data Results & Data ([facility]) Vital Signs (Past 12 Hours) Vital Signs Temp Pulse Pulse Resp BP Pulse Ox 03/10/20 09:36 67 98/60 L 99 03/10/20 07:25 36.7 C 55 L 14 78/49 L 97 PG Care Time/CCT Total # of Minutes Spent Total Time Spent with Patient: Total time spent is greater than 50% in coordination of care (as documented) at patient's floor/unit and/or counseling patient: Coding Diagnoses Abdominal pain R10.9 Asthma J45.909 Anxiety F41.9 DVT prophylaxis Z29.9
--- NOTE | 2020-03-10 12:45 | Gastroenterology Progress Note ---
Date of Service March 10, 2020 Assessment & Plan (1) Gastric ulcer: 1. May DC PPI drip today. 2. PO BID PPI x 1 month such as Pantoprazole 40mg BID, then daily. 3. Carafate 4 times daily for 2 weeks 4. Needs repeat EGD in approx 3 months. Our office will call her to arrange, but pt may prefer to do at home over Thanksgiving break. 5. Regular diet. 6. No NSAIDs. Admission and Anticipated Discharge Date Admission Date: March 08, 2020 Supervising Physician Co-Signing Physician Notes I saw and evaluated the patient on 03/10. She appears to be recovering well, plan as outlined above. 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 EGD with large gastric ulcer on 03/08. On PPI drip since then. No evidence of current gross GI bleeding. Hb stable at 11.8 down from 15.7 on arrival and 11 yesterday,. Baseline Hb likely closer to 13. BUN normal yesterday and today. No BM since prior to EGD. Review of Systems Review of Systems: ROS: Gen: Denies weakness, fevers, weight loss Eyes: No eye redness, or pain, no recent vision changes Resp: No SOB, no cough Cardio: No palpitations/irregular beats, no chest pain GI: See HPI : Denies pain on urination Skin: No jaundice, itching or new rashes Physical Exam Constitutional: WD/WN, vitals as above Eyes: PERRL, conjunctivae normal, anicteric sclerae ENMT: external ear and nose normal, oropharynx normal Neck: trachea midline, no thyromegaly Respiratory: normal respiratory effort, lungs clear to auscultation Cardiovascular: RRR, no murmur, no edema Gastrointestinal (Abdomen): Inspection/Auscultation: abdomen normal to inspection and + hypoactive bowel sounds; abdomen not distended Percussion/Palpation: + abdomen tender (mild, diffuse) and abdomen soft Musculoskeletal: no cyanosis or clubbing, extremities motor strength 5/5 Skin: no rashes, warm and dry Neurologic: patellar DTR's 2+ bilat, sensation intact Psychiatric: A+Ox3, euthymic affect Lymphatic: no cervical or axillary lymphadenopathy Results & Data ([facility]) Vital Signs (Past 12 Hours) Vital Signs Temp Pulse Pulse Resp BP Pulse Ox 03/10/20 09:36 67 98/60 L 99 03/10/20 07:25 36.7 C 55 L 14 78/49 L 97
--- NOTE | 2020-03-10 14:04 | Discharge Summary ---
Date of Service March 10, 2020 Admission HPI Per Admitting Provider Ms. Schulte presented to the emergency department with 4 days of abdominal pain. She had been to the ED 3 days ago but had not improved. She has not eaten any food in a number of days and has been unable to drink. She has had nausea, vomiting and diarrhea and today had one bout of dark black stool which concerned her. Her CT upon her visit to the ED 3 days ago showed a focal segment of circumferential thickening in the mid body favoring gastritis vs mass. She has had no sick contacts, she lives with five roommates who have all been well. She had been drinking about 4 drinks a night for about four nights up until Sunday when she started to feel unwell. She reports she doesn't usually drink that much. She has never had anything like this before. She has no history of autoimmune disorders and none within her family history. She denies aches, chills fevers, chest pain, sob, cough, dysuria, or hesitancy. Pmhx: anxiety Social: lives with roommates, student at [employer], non smoker, drinks socially - as above Family: no significant family medical history Primary Care Provider: [facility] Admission Exam Per Admitting Provider General: no distress Eyes: normal inspection, PERLL Respiratory: chest non tender, clear to auscultation, normal breath sounds, no respiratory distress, no accessory muscle use Cardiac: regular rate and rhythm, no rub or gallop, no murmur, no edema, no jvd GI/: active bowel sounds, mild diffuse abd pain, soft, non distended, no rebound tenderness Extremities: normal range of motion, normal strength, non tender Neuro/Psych: alert and oriented x 3, normal mood and affect Skin: normal color, dry Principal Diagnosis Gastric Ulcer Discharge Exam Constitutional WD/WN, vitals as above no acute distress Eyes + anicteric sclerae and PERRL ENMT Ears: no hearing impairment Neck normal visual inspection Respiratory normal respiratory effort, lungs clear to auscultation Cardiovascular RRR, no murmur, no edema Gastrointestinal (Abdomen) normal bowel sounds, soft, nontender, no hepatosplenomegaly Musculoskeletal no cyanosis or clubbing, extremities motor strength 5/5 Skin no rashes, warm and dry Neurologic PERRL, EOMI, accommodation nl, no face palsy, no dysarthria Psychiatric A+Ox3, euthymic affect Lymphatic no cervical or axillary lymphadenopathy Discharge Data Allergies Allergy/AdvReac Type Severity Reaction Status Date / Time nut - unspecified Allergy Severe Anaphylaxis Verified 03/08/20 10:32 Consultations 03/07/20 15:12 ED Decision to Admit Stat 03/07/20 19:34 Consult Gastroenterology Routine Procedures Performed Operation Date: 03/08/20 17:00 Actual Procedures p EGD Hemostasis - Maverick Rodriguez Ordered Studies 03/07/20 US transvaginal Routine 03/07/20 20:26 US pelvic complete Urgent Chest/Abd X-ray Hospital Course (1) Gastric ulcer: Presented with n/v/d and one episode of melena prior to admission -- related to EtOH CTA/P with circumferential thickening/edema mid body of stomach, favoring gastritis. Normal appendix. GI consulted s/p EGD 03/08 showing large ulcer of the gastric antrum with a visible vessel and adherent clot injected and cautery by GI stool cultures, cdiff not able to be obtained as patient with hx constipation and goes once weekly. Provided patient with order and specimen cup for h/ pylori antigen testing. Of note, patient and mother in room prior to discharge and patient states she has been dealing with this chronically and has been seen by GI in the past and was unsuccessful with even Linzess. Recommended following up with GI outpatient for further options as she is also to have repeat EGD in 3 months either with our facility or at home during break. Discussed abstinence from EtOH as well as NSAIDs and to utilize tylenol for pain Had been on protonix gtt for 48 hours and transitioned to 40mg BID for one month, then daily thereafter. In addition, carafate QID for 2 weeks to be continued at discharge. Previous counseling on alcohol use and if she ever feels to be a problem would rec f/u with provider for resources on alcohol cessation No further vomiting/melena/nausea (2) Abdominal pain: See above (3) Asthma: Continued home albuterol (4) Anxiety: Continued sertraline (5) DVT prophylaxis: SCDs Discharged with mother. Total Time Total Time Spent Total Time Spent (In Minutes): 60 Discharge Plan Discharge Items Patient Disposition: Home - Self-Care Reason For Visit: ABDOMINAL PAIN Discharge Diagnosis: Gastric Ulcer Condition on Discharge: Good Goals: You have been hospitalized for an urgent problem which required surgery. During your stay at [facility], we have made an effort to correct the problem that brought you to the hospital while keeping you as comfortable as possible. EGD and medications were used to bring your condition under control and your discharge instructions will include directions for any medications you should take after leaving the hospital. Please make sure to follow the advice of your surgeon regarding follow up with the surgeon and with your primary care provider. Activity: Resume your previous activity Non-emergency contact: Primary Care Provider and Pigment Presser Call non-emergency contact if: you have any medication questions, your symptoms worsen and your pain is not controlled Follow-up/Referrals: Maverick Rodriguez [Physician] - (3 months) [facility] [Primary Care Provider] - 03/16/20 1:20 pm Diet: Regular Ambulatory Orders: H.pylori Ag, Stool (Routine) Location: None Selected Ordered By: Sera Fuentes Attending Provider Instructions: You have been hospitalized and found to have a gastric ulcer which was treated with cautery to ensure no further bleeding. You were treated with Protonix drip to stop the bleeding and ensure healing. You have been sent prescriptions to continue as follows: * Carafate 1gm by mouth FOUR TIMES daily for 2 weeks * Protonix 40mg by mouth TWICE daily for 4 weeks and then once daily after that. --> BEGIN TONIGHT You have also been sent in short prescription of zofran to use for nausea. It is recommended that you have a repeat upper endoscopy in 3 months for surveillance. You can call Dr. Rodriguez's office at [phone]. It is recommended that you provide an H. Pylori stool antigen test. You will be provided a specimen cup and order to drop off once you have a bowel movement. Please avoid all alcohol as this is likely cause of current condition. For pain, please avoid ibuprofen, motrin, aspirin, etc and utilize tylenol as needed, up to 3,000mg daily (six 500mg tablets). You appendix was normal on previous imaging, however if you develop worsening RLQ pain, nausea, vomiting, or fever please return to the emergency department LEENA. Please follow up with S in the next week to monitor your progress. Please return to the emergency department with any worsening pain, nausea, fever, blood in your stool or vomit, or for any other symptoms that are concerning for you. Pending Studies at Discharge: Yes Studies:: H. Pylori Stool Antigen Stand-Alone Forms: My [facility], Work/School Release (Inpt) Medications and DC Order Prescriptions: New sucralfate 1 gram Tablet 1 g PO QID 14 Days Qty: 56 RF: 0 pantoprazole 40 mg tablet,delayed release (DR/EC) 40 mg PO BID 30 Days Qty: 60 RF: 1 ondansetron 4 mg film 4 mg PO DAILY PRN (Reason: nausea and vomiting) Qty: 10 RF: 0 Continued sertraline [Zoloft] 100 mg Tablet 100 mg PO DAILY RF: 0 albuterol sulfate 90 mcg/actuation Hfa Aerosol Inhaler 2 inh INHALATION QID PRN (Reason: Shortness Of Breath Or Wheezing) RF: 0 Claritin-D 24 Hour 1 tab PO DAILY RF: 0 Mirena 20 mcg/24 hours (5 yrs) 52 mg Intrauterine Device 20 mcg INTRAUTERINE CONTINOUS RF: 0 Discharge Orders: Discharge Order (Routine); Ordered 03/10/20 Ordered By: Sera Montes De Oca/Other Patient Handouts: Anatomy of the Digestive System, Understanding Gastric Ulcers Admission Data Admit Date/Time: 03/08/20 14:29 Attending Provider: Tone Honeycutt Admit Provider: Osvaldo Watkins Primary Care Provider: [facility] Other Providers: Yinka Cano ; Robert Sahu Other Interventions: Discharge Summary Assessment (RN) Last Done: 03/10/20 13:24 Supervising Physician Co-Signing Physician Notes Patient seen and examined on the day of discharge. I agree with the discharge summary by Mandy MOSER. I have reviewed the chart including labs, imaging and plans for discharge. patient feeling a lot better, tolerating diet, no epigastric pain discussed with her and her mother that our recommendation is no alcohol intake for three months would wait until she gets a repeat EGD to document that the ulcer has healed - Gastric ulcer with visible vessel, endoscopic treatment continue Protonix 40 BID for a month then daily continue Carafate for two weeks total abstain completely from alcohol for three months, allows gastric mucosa to heal discussed with her mother at discharge follow up with GI in three months for repeat EGD to document healing Coding Level of Care Code D/C Day Management >30 mins Diagnoses Gastric ulcer K25.9 Abdominal pain R10.9 Asthma J45.909 Anxiety F41.9 DVT prophylaxis Z29.9
== END 2020-03-10 14:12 | disposition home or self-care (01) | DRG 379 ==
LOC: ED 13:30 → 3W 13:30 → SUATTDRO 16:10 → 3W 17:49